=== PATIENT | female | born 1950 | race Caucasian/White ===

== ENCOUNTER 2019-03-01 11:22 | Emergency (ER) | payer MEDICARE, OTHER ==
[~2019-03-01] VITALS: Ht 165.1 cm; Wt 77.3 kg
[~2019-03-01 11:22] MED LIST: ASPI81TA52 PO; ENAL20TA75 PO; LORA-512 PO; MELO-83 PO; PRED20TA PO; [UNRECOGNIZED DRUG - CODE]
[2019-03-01] MEDS ORDERED: BENZ-16 PO (13:39)
[2019-03-01 14:12] VITALS: BP 128/49
== END 2019-03-01 14:14 | disposition home or self-care (01) ==
LOC: ER 11:22
DX: J22 Unspecified acute lower respiratory infection (principal); I10 Essential (primary) hypertension; M19.90 Unspecified osteoarthritis, unspecified site; Z91.013 Allergy to seafood; Z79.82 Long term (current) use of aspirin; Z79.899 Other long term (current) drug therapy
CPT/HCPCS: 71046; 99284

== ENCOUNTER 2020-06-08 11:54 | Emergency (ER) | payer MEDICARE, OTHER ==
[~2020-06-08] VITALS: Ht 165.1 cm; Wt 77.0 kg
[2020-06-08] MEDS ORDERED: normal saline 1000ML IV soln IVB ONE (12:10)
[2020-06-08] MEDS ORDERED: morphine 4 MG/ML inj SYRINge IV ONE (12:10)
[2020-06-08] MEDS ORDERED: ondansetron/PF 4mg/2ml inj IV ONE (12:10)
--- NOTE | 2020-06-08 12:20 | NUR ---
IN CT VIA W/C
[2020-06-08 12:22] LABS: BASOPHILS % (AUTO) 0.3 % (0-1); EOSINOPHILS % (AUTO) 0.1 % (0-6); HEMATOCRIT 44.7 % (35.0-45.0); HEMOGLOBIN 15.2 g/dl (12.0-16.0); LYMPHOCYTES # (AUTO) 0.4 X10'3 (1.1-4.8); LYMPHOCYTES % (AUTO) 4.9 % (21-51); MEAN CORPUSCULAR HEMOGLOBIN 28.8 PG (27.0-31.0); MEAN CORPUSCULAR VOLUME 84.8 FL (78-98); MEAN PLATELET VOLUME 9.6 FL (7.4-10.4); MONOCYTES # (AUTO) 0.4 X10'3 (0-0.9); MONOCYTES % (AUTO) 4.4 % (2-12); NEUTROPHILS # (AUTO) 7.4 X10'3 (1.8-7.7); NEUTROPHILS % (AUTO) 90.3 % (42-75); PLATELET COUNT 147 X10'3 (140-440); RED BLOOD COUNT 5.27 X10'6 (4.20-5.60); RED CELL DISTRIBUTION WIDTH 12.9 % (11.5-14.5); WHITE BLOOD COUNT 8.2 X10'3 (4.5-11.0)
[2020-06-08 12:34] LABS: ALANINE AMINOTRANSFERASE 42 U/L (12-78); ALBUMIN 4.1 G/DL (3.4-5.0); ALBUMIN/GLOBULIN RATIO 1.2 (1.1-1.5); ALKALINE PHOSPHATASE 106 IU/L (46-116); ANION GAP 9 (8-16); ASPARTATE AMINO TRANSFERASE 26 U/L (10-37); BILIRUBIN,TOTAL 0.8 MG/DL (0.1-1.0); BLOOD UREA NITROGEN 18 MG/DL (7-18); BUN/CREATININE RATIO 21.4 (6.6-38.0); CALCIUM 9.8 MG/DL (8.5-10.1); CHLORIDE 102 MMOL/L (99-107); CREATININE 0.84 MG/DL (0.40-0.90); GLUCOSE 150 MG/DL (70-104); SODIUM 139 MMOL/L (135-145); TOTAL CARBON DIOXIDE 28.3 MMOL/L (24-32); TOTAL PROTEIN 7.6 G/DL (6.4-8.2); eGFR 67 ML/MIN
[2020-06-08 12:38] LABS: POTASSIUM 2.9 MMOL/L (3.5-5.1)
[2020-06-08] MEDS ORDERED: potassium Cl 10 mEq/100mL bag IV ONE (12:45)
[2020-06-08] MEDS ORDERED: ketorolac trometh. 30mg/ml inj. IV ONE (13:05)
[2020-06-08] MEDS ORDERED: HYDR-4353 PO (13:09)
[2020-06-08] MEDS ORDERED: IBUP-1984 PO (13:09)
[2020-06-08] MEDS ORDERED: FLO0.4C PO (13:09)
[2020-06-08] MEDS ORDERED: ONDA8TAB6 PO (13:09)
[2020-06-08] MEDS ORDERED: POTA10TA19 PO (13:13)
[2020-06-08 13:48] LABS: CLARITY,URINE CLEAR (Clear); COLOR,URINE YELLOW (Yellow); GLUCOSE, URINE NEGATIVE (Neg); KETONES,URINE 15 mg/dl (Neg); LEUKOCYTE ESTERASE ,URINE NEGATIVE (Neg); NITRITES, URINE NEGATIVE (Neg); OCCULT BLOOD,URINE LARGE (Neg); PROTEIN,URINE NEGATIVE (Neg); UROBILINOGEN,URINE 0.2 E.U/dL (0.2-1.0)
[2020-06-08 13:54] LABS: UA COLLECTION TYPE CLN CATCH MIDSTREAM
[2020-06-08 13:55] LABS: BACTERIA,URINE NONE SEEN /HPF (Neg); MUCUS STRANDS FEW /LPF (Neg); SQUAMOUS EPITHELIAL CELL,UR FEW /LPF (FEW); WBC,URINE 0-4 /HPF (0-4)
[2020-06-08 15:46] VITALS: BP 136/68
== END 2020-06-08 15:47 | disposition home or self-care (01) ==
LOC: ER 11:54
DX: N20.0 Calculus of kidney (principal); R10.31 Right lower quadrant pain; R11.2 Nausea with vomiting, unspecified; E87.6 Hypokalemia; I10 Essential (primary) hypertension; M19.90 Unspecified osteoarthritis, unspecified site; Z90.710 Acquired absence of both cervix and uterus; Z88.8 Allergy status to other drugs, medicaments and biological substances; Z79.82 Long term (current) use of aspirin; Z79.899 Other long term (current) drug therapy
CPT/HCPCS: 36415; 74176; 80053; 81001; 85025; 93005; 96361; 96365; 96366; 96375; 99285; J1885; J2270; J2405; J3480; J7030

== ENCOUNTER 2022-03-03 11:52 | Emergency (ER) | payer MEDICARE, OTHER ==
[~2022-03-03] VITALS: Ht 165.1 cm; Wt 79.0 kg
[~2022-03-03 11:52] MED LIST changes: +ONDA8TAB6 PO
[2022-03-03 15:06] VITALS: BP 126/67
== END 2022-03-03 15:53 | disposition home or self-care (01) ==
LOC: ER 11:53
DX: R04.0 Epistaxis (principal); I10 Essential (primary) hypertension; M19.90 Unspecified osteoarthritis, unspecified site; Z85.3 Personal history of malignant neoplasm of breast; Z90.710 Acquired absence of both cervix and uterus; Z88.8 Allergy status to other drugs, medicaments and biological substances; Z79.82 Long term (current) use of aspirin; Z79.899 Other long term (current) drug therapy
CPT/HCPCS: 99283